=== PATIENT | female | born 1985 | race Caucasian/White ===

== ENCOUNTER → 2018-05-19 19:31 | Outpatient (CLI) | payer OTHER, SELFPAY ==
[2018-05-19 22:19] LABS: Chlamydia Trachomatis by PCR Negative (Negative); Neisserai gonorrhoeae by PCR Negative (Negative); Probe Check PASS; Sample Adequacy Control PASS; Specimen Processing Control PASS
[2018-05-25 15:23] LABS: HPV Reflexed? NOT INDICATED
== END ==
PROVIDERS: Visit Provider Obstetrics & Gynecology
DX: Z12.4 Encounter for screening for malignant neoplasm of cervix (principal); Z11.3 Encounter for screening for infections with a predominantly sexual mode of transmission
CPT/HCPCS: 87491; 87591; 88175; G0145

== ENCOUNTER → 2018-06-15 16:39 | Outpatient (CLI) | payer OTHER, SELFPAY ==
[2018-06-15 17:15] LABS: Absolute Lymphocyte Count 1.58 X10^3/ul (0.83-4.51); Absolute Neutrophil Count 6.3 X10^3/uL (2.0-7.7); Basophil# 0.01 X10^3/uL; Basophil% 0.1 % (0-1); Eosinophil# 0.11 X10^3/uL; Eosinophils% 1.3 % (0-5); Hemoglobin 13.8 g/dl (12.0-15.0); Lymphocyte # 1.58 X10^3/ul (4.0); Lymphocyte % 18.7 % (19-41); Mean Corp Hgb Conc 33.7 g/gl (32-36); Mean Corpuscular Hgb 30.4 pg (27.0-32.0); Mean Corpuscular Volume 90.3 fL (81-99); Mean Platelet Vol. 9.5 fl (6.2-12.0); Monocyte# 0.44 X10^3/uL; Monocyte% 5.2 % (0-10); Neutrophil # 6.32 X10^3/uL (2.7-7.7); Neutrophil % 74.7 % (47-70); POSITIVE COUNT NO; POSITIVE DIFFERENTIAL NO; POSITIVE MORPHOLOGY NO; Platelet Count 290 K/mm3 (150-450); RBC Distribution Width SD 39.5 fl (35.1-43.9); Red Blood Count 4.54 M/mm3 (4.2-5.4); White Blood Count 8.5 K/mm3 (4.4-11.0)
[2018-06-15 17:26] LABS: COTININE Drug Screen Negative (<200 ng/mL)
[2018-06-15 17:34] LABS: Color, Urine Yellow (Yellow); Glucose, Dipstick Normal (Normal); Leukocyte Esterase-Dipstick 25 /ul (Negative); Nitrite-Dipstick Negative (Negative); Occult Blood-Urine Negative /ul (Negative); Protein-Dipstick 15 mg/dl (Negative); Specific Gravity, Urine 1.025 (1.002-1.030); Urine Bilirubin Dipstick Negative (Negative); Urine Clarity Clear (Clear); Urine Urobilinogen Normal (Normal)
[2018-06-15 17:37] LABS: Ketone-Dipstick 150 mg/dl (Negative)
[2018-06-15 17:42] LABS: Amphetamine Urine VISTA NEGATIVE (<1000 ng/mL); Barbiturate Urine VISTA NEGATIVE (< 200 ng/mL); Benzodiazepine Urine VISTA NEGATIVE (< 200 ng/mL); Cocaine Urine VISTA NEGATIVE (< 300 ng/mL); Ecstacy Urine VISTA NEGATIVE (< 500 ng/mL); Methadone Urine VISTA NEGATIVE (< 300 ng/mL); PCP Urine VISTA NEGATIVE (< 25 ng/mL); THC Urine VISTA NEGATIVE (< 50 ng/mL); Vista UDS pH Range 5
[2018-06-15 18:09] LABS: Thyroid Stim Hormone (TSH) 2.32 uIU/mL (0.358-3.74)
[2018-06-15 18:46] LABS: HIV - WCH Non-Reactive (Nonreactive)
[2018-06-18 05:43] LABS: Prenatal RPR NONREACTIVE (NONREACTIVE)
[2018-06-18 13:42] LABS: HEPATITIS B SURFACE AG Negative (Negative); Hep C Antibodies <0.1 s/co ratio (0.0-0.9)
== END ==
PROVIDERS: Visit Provider Obstetrics & Gynecology
DX: Z34.81 Encounter for supervision of other normal pregnancy, first trimester (principal)
CPT/HCPCS: 36415; 80307; 81002; 84443; 85025; 86703; 86762; 86803; 87340

== ENCOUNTER → 2018-10-20 15:03 | Outpatient (CLI) | payer OTHER, SELFPAY ==
[2018-08-28 08:23] VITALS: BMI 20.5
[2018-10-20 15:58] LABS: Glucose Challenge Gest 1H 50g 115 mg/dL (70-140)
[2018-10-20 16:08] LABS: Hematocrit 38.5 % (37-47); Hemoglobin 12.9 g/dl (12.0-15.0); Mean Corp Hgb Conc 33.5 g/gl (32-36); Mean Corpuscular Hgb 31.9 pg (27.0-32.0); Mean Corpuscular Volume 95.1 fL (81-99); Mean Platelet Vol. 9.4 fl (6.2-12.0); Platelet Count 350 K/mm3 (150-450); RBC Distribution Width CV 12.9 % (11.6-14.6); RBC Distribution Width SD 43.8 fl (35.1-43.9); Red Blood Count 4.05 M/mm3 (4.2-5.4); Scan Indicated on CBC? Y/N NO; White Blood Count 10.5 K/mm3 (4.4-11.0)
== END ==
PROVIDERS: Visit Provider Obstetrics & Gynecology
DX: Z34.83 Encounter for supervision of other normal pregnancy, third trimester (principal)
CPT/HCPCS: 36415; 82950; 85027

== ENCOUNTER → 2018-12-08 16:10 | Outpatient (CLI) | payer OTHER, SELFPAY ==
[2018-08-28 08:23] VITALS: BMI 20.5
== END ==
PROVIDERS: Visit Provider Obstetrics & Gynecology
DX: Z36.85 Encounter for antenatal screening for Streptococcus B (principal)
CPT/HCPCS: 87081

== ENCOUNTER 2019-01-03 07:50 | Inpatient (IN) | payer OTHER, SELFPAY ==
[2018-08-28 08:23] VITALS: BMI 20.5
[2019-01-03 07:39] VITALS: BMI 23.5
[2019-01-03 07:45] LABS: ROM Internal Control Test YES-OK TO RESULT pt. (Internal QC)
[2019-01-03 07:46] LABS: ROM Patient Test POSITIVE (Negative)
[2019-01-03] MEDS: Lactated Ringers 1,000 ML 50 ML IV ×2 (08:00→09:19)
[2019-01-03 08:37] LABS: Absolute Lymphocyte Count 2.59 X10^3/ul (0.83-4.51); Absolute Neutrophil Count 7.5 X10^3/uL (2.0-7.7); Basophil# 0.03 X10^3/uL; Basophil% 0.3 % (0-1); Eosinophil# 0.13 X10^3/uL; Eosinophils% 1.2 % (0-5); Hematocrit 37.7 % (37-47); Hemoglobin 12.7 g/dl (12.0-15.0); Lymphocyte # 2.59 X10^3/ul (4.0); Lymphocyte % 23.6 % (19-41); Mean Corp Hgb Conc 33.7 g/gl (32-36); Mean Corpuscular Hgb 29.9 pg (27.0-32.0); Mean Corpuscular Volume 88.7 fL (81-99); Mean Platelet Vol. 9.8 fl (6.2-12.0); Monocyte# 0.71 X10^3/uL; Monocyte% 6.5 % (0-10); Neutrophil # 7.48 X10^3/uL (2.7-7.7); Platelet Count 322 K/mm3 (150-450); RBC Distribution Width CV 12.9 % (11.6-14.6); RBC Distribution Width SD 41.3 fl (35.1-43.9); Red Blood Count 4.25 M/mm3 (4.2-5.4)
[2019-01-03 08:38] LABS: POSITIVE COUNT NO; POSITIVE DIFFERENTIAL NO; POSITIVE MORPHOLOGY NO
[2019-01-03] MEDS: fentaNYL-bupivacaine (epidural) 100 ML BAG EPIDURAL (09:40)
--- NOTE | 2019-01-03 10:16 | PCM.PN.BLA ---
Progress Note LABOR PROGRESS NOTE comfortable w/ epidural AVSS AROM of forebag with copious clear fluid noted. Cx: /-2 sl posterior EFM category I tracing. UCs poor pickup. A/P: 38 6/7 wk SROM with AROM now of forebag. Cervix essentially same. Will watch progress now after AROM of forebag. Continue labor Anticipate
[2019-01-03] MEDS: Oxytocin 30 units/NS 500 ml 30 UNITS/500 ML IV.SOLN 334 UNITS IV (13:59)
--- NOTE | 2019-01-03 14:09 | PCM.DCVAG ---
Discharge Diet: No Restrictions Discharge Activity: May Shower, May Take a Tub Bath May resume sexual activity in: 4-6 weeks Additional Activity Instructions:: Nothing in the vagina for 4-6 weeks. You may return to work/school in 6 weeks. Additional Instructions: If you experience any of the following, contact your healthcare provider. Bleeding that soaks a pad every hour for 2 hours Fever 100.4 or higher Unrelieved abdominal pain Problems urinating (including inability to urinate or burning while urinating). Visual changes Severe headache Flu-like symptoms Pain or redness in one of both of your breasts Pain, warmth, tenderness or swelling in your legs, especially the calf area Frequent nausea and vomiting Symptoms of depression or anxiety If you experience any of the following, call 911 or go to the nearest Emergency Room. Chest pain Problems breathing Seizure activity Partial or complete paralysis of a body part, slurred speech, weakness or drooping of the face, or a sudden inability to walk or hold your balance Allergies/Adverse Reactions: Allergies No Known Allergies Allergy (Verified 08/28/18 08:24) Medications to take at Discharge Albuterol Sulfate [Ventolin Hfa] 1 - 2 puff IH Q4H PRN PRN 04/14/15 Montelukast [Singulair] 10 mg PO DAILY 05/19/16 Vits [Prenatabs FA ] 1 tab PO DAILY 05/19/16 Please Follow Up With: Jose Alberto Keller MD - [phone] When: Call to make an appointment with your doctor in 6 weeks. Primary Care Physician: Nadia Alexander MD [Primary Care Provider] - Test Results: Test results from this visit will be discussed in further detail at your follow-up appointment, if applicable. Proposed Discharge Date: 01/05/19
--- NOTE | 2019-01-03 14:10 | DCINST_ITS ---
Discharge Diet: No Restrictions Discharge Activity: May Shower, May Take a Tub Bath May resume sexual activity in: 4-6 weeks Additional Activity Instructions:: Nothing in the vagina for 4-6 weeks. You may return to work/school in 6 weeks. Additional Instructions: If you experience any of the following, contact your healthcare provider. * Bleeding that soaks a pad every hour for 2 hours * Fever 100.4 or higher * Unrelieved abdominal pain * Problems urinating (including inability to urinate or burning while urinating). * Visual changes * Severe headache * Flu-like symptoms * Pain or redness in one of both of your breasts * Pain, warmth, tenderness or swelling in your legs, especially the calf area * Frequent nausea and vomiting * Symptoms of depression or anxiety If you experience any of the following, call 911 or go to the nearest Emergency Room. * Chest pain * Problems breathing * Seizure activity * Partial or complete paralysis of a body part, slurred speech, weakness or drooping of the face, or a sudden inability to walk or hold your balance Allergies/Adverse Reactions: Allergies No Known Allergies Allergy (Verified 08/28/18 08:24) Medications to take at Discharge Albuterol Sulfate [Ventolin Hfa] 1 - 2 puff IH Q4H PRN PRN 04/14/15 Montelukast [Singulair] 10 mg PO DAILY 05/19/16 Vits [Prenatabs FA ] 1 tab PO DAILY 05/19/16 Please Follow Up With: Jose Alberto Keller MD - [phone] When: Call to make an appointment with your doctor in 6 weeks. Primary Care Physician: Nadia Alexander MD [Primary Care Provider] - Test Results: Test results from this visit will be discussed in further detail at your follow- up appointment, if applicable. Proposed Discharge Date: 01/05/19
--- NOTE | 2019-01-03 14:12 | PCM.OPRPT ---
Vaginal Delivery Maternal Presentation: Active Labor 38 6/7 wk labor SROM Amniotic Membrane Rupture Type: Spontaneous at home Rupture of Membrane time: 0230 Amniotic Fluid Description: Clear Final KATIE: 01/11/19 Gestational age: 38 Weeks and 6 Days Date of Procedure: 01/03/19 Pre-Operative Diagnosis: 38 6/7 wk labor Post-Operative Diagnosis: same Surgery/ Procedure Performed: Spontaneous Vaginal Delivery Type of Anesthesia: Epidural Description of Procedure: of a mcneill viable male over intact perineum. Head delivered GARCIA. No nuchal cord noted OP and nares bulb suctioned on perineum. Shoulders delivered easily, through loose body cord x one. Infant to maternal abdomen with spont cry. End stage meconium noted. Delayed cord clamping employed and the cord clamped x two and cut. Routine cord gases obtained PP exam: 1st deg posterior perineal laceration repaired under epidural to hemostatic, intact with 3-0 Vicryl Rapide. No other lacerations noted. Placenta delivered by spont expulsion, 3 V cord, normal appearing and intact with trailing membranes EBL 350 cc Pt and tolerated delivery well. to recovery, stable condition Raytec counts correct x two All sharps removed from field. Presentation: Vertex, GARCIA Placental Delivery Description: Spontaneous, Expressed Placenta Disposition: [facility] Cord Vessel Description: 3 Vessels Cord Gases drawn per routine: ABG, VBG Cord Entanglement: None Drain: Meza to straight drain Estimated Blood Loss: 350 Infant A gender: Male (1 minute): 8 (5 minute): 9 Episiotomy Description: None Laceration: Midline, Perineal Extension/lac, 1st degree Medications given after delivery: IV Pitocin Complications: None
[2019-01-03] MEDS: Oxytocin 30 units/NS 500 ml 30 UNITS/500 ML IV.SOLN 167 UNITS IV (14:30)
[2019-01-03] MEDS: 0.9% Saline Lock 10 ML Syringe IV (15:32)
[2019-01-03] MEDS: Ibuprofen 600 MG Tablet PO (19:50)
[2019-01-03 19:56] VITALS: BP 114/70; PULSE 87; RESP 18; TEMP 36.7
[2019-01-04 00:10] VITALS: BP 109/66; PULSE 68; RESP 18; TEMP 36.1
[2019-01-04 04:30] VITALS: BP 100/68; PULSE 64; RESP 18; TEMP 36.3
[2019-01-04] MEDS: Ibuprofen 600 MG Tablet PO (04:38)
[2019-01-04 04:56] LABS: Hemoglobin 10.9 g/dl (12.0-15.0); Mean Corpuscular Hgb 29.5 pg (27.0-32.0); Mean Corpuscular Volume 89.4 fL (81-99); Platelet Count 294 K/mm3 (150-450); RBC Distribution Width CV 12.7 % (11.6-14.6); RBC Distribution Width SD 39.4 fl (35.1-43.9); Red Blood Count 3.69 M/mm3 (4.2-5.4)
[2019-01-04 04:57] LABS: Scan Indicated on CBC? Y/N NO
--- NOTE | 2019-01-04 08:14 | PCM.PN.OB ---
Subjective: PPD#1 Doing well. Minimal pain, mostly with nursing Bleeding about like a heavy period, no longer passing any clots. - Physical Exam General: Alert, Oriented x3, Cooperative, No apparent distress HEENT: Atraumatic Neck: Supple Abdomen: Soft - Fundus firm, NT at 1-2 cm inferior to umbilicus Extremities: No clubbing, No cyanosis Psych/Mental Status: Normal Affect Vital Signs Temp Pulse Resp BP 97.4 F L 64 18 100/68 01/04/19 04:30 01/04/19 04:30 01/04/19 04:30 01/04/19 04:30 Oxygen Delivery Method Room Air Weight: 65 kg Body Mass Index (BMI) 23.5 Intake and Output for Last 24 Hours 01/02/19 01/03/19 01/04/19 23:59 23:59 23:59 Intake Total 1559 / 1559 Output Total 1075 / 1075 Balance 484 / 484 Laboratory Tests Past 24 Hrs 01/03/19 01/03/19 01/04/19 08:10 08:10 04:40 WBC 11.0 13.0 H RBC 4.25 3.69 L Hgb 12.7 10.9 L Hct 37.7 33.0 L MCV 88.7 89.4 MCH 29.9 29.5 MCHC 33.7 33.0 RDW 12.9 12.7 RDW Differential 41.3 39.4 Plt Count 322 294 MPV 9.8 10.0 Immature Gran % (Auto) 0.400 Neut % (Auto) 68.0 Lymph % (Auto) 23.6 [place] % (Auto) 6.5 Eos % (Auto) 1.2 Baso % (Auto) 0.3 Absolute Neuts (auto) 7.5 Absolute Lymphs (auto) 2.59 Total Counted Not Reportable Blood Type B POSITIVE Antibody Screen NEGATIVE Medical Necessity - Tobacco Use Smoking Status: Never smoker Assessment/Plan All Active Problems (Last Updated 08/28/18 @ 08:25 by Namrata Naik) Sinusitis, acute (Acute) PPD#1 Stable , continue care certificate form today.
[2019-01-04 08:16] VITALS: BP 94/67; PULSE 66; RESP 16; TEMP 36.4
[2019-01-04] MEDS: Prenatal Vits Tablet 1 TABLET PO (08:21)
[2019-01-04] MEDS: Montelukast 10 MG Tablet PO (08:21)
[2019-01-04 11:46] VITALS: BP 99/61; PULSE 76; RESP 16; TEMP 36.3
--- NOTE | 2019-01-04 12:12 | PCM.DC.SUM ---
Discharge Date and Diagnosis Date of Admission: 01/03/19 Date of Discharge: 01/04/19 - Primary Discharge Diagnosis S/P Hospital Course and Treatment Operations: None Procedures: - - Summary of Care Provided: The patient is a 33 year old F [admitted in active labor. Progressed over a short time to FD then pushed to deliver a live male without complication. course was unremarkable. Discharged home on PP day#1.] - Physical Exam Vital Signs Temp Pulse Resp BP 97.4 F L 76 16 99/61 01/04/19 11:46 01/04/19 11:46 01/04/19 11:46 01/04/19 11:46 Oxygen Delivery Method Room Air Weight: 143 lb 4.807 oz Body Mass Index (BMI) 23.5 Intake and Output for Last 24 Hours 01/02/19 01/03/19 01/04/19 23:59 23:59 23:59 Intake Total 1559 / 1559 Output Total 1075 / 1075 Balance 484 / 484 Laboratory Tests Past 24 Hrs 01/04/19 04:40 WBC 13.0 H RBC 3.69 L Hgb 10.9 L Hct 33.0 L MCV 89.4 MCH 29.5 MCHC 33.0 RDW 12.7 RDW Differential 39.4 Plt Count 294 MPV 10.0 Discharge Diet: No Restrictions Discharge Activity: May Shower, May Take a Tub Bath Return to work on:: 03/06/19 May resume sexual activity in: 4-6 weeks Additional Activity Instructions:: Nothing in the vagina for 4-6 weeks. You may return to work/school in 6 weeks. Call your doctor if you observe: Fever of 101 or Higher, Inability to urinate, Inability to have a bowel movement, Using more than one pad per hour, Shortness of breath, Chest pain, Calf discomfort, Uncontrolled pain Cleanse incision/area with: Soap & Water Home Medications: Medications to take at Discharge Albuterol Sulfate [Ventolin Hfa] 1 - 2 puff IH Q4H PRN PRN 04/14/15 Montelukast [Singulair] 10 mg PO DAILY 05/19/16 Vits [Prenatabs FA ] 1 tab PO DAILY 05/19/16 Primary Care Physician: Nadia Alexander MD [Primary Care Provider] - Please Follow Up With: Jose Alberto Keller MD - [phone] When: 6 weeks Disposition: Home Minutes spent on discharge:: 15 Patient Condition:: Good Medical Necessity - Tobacco Use Smoking Status: Never smoker Meaningful Use Info Meaningful Use Diagnoses (Choose all that apply): None applicable
[2019-01-04 14:47] VITALS: BP 104/65; PULSE 80; RESP 16; TEMP 36.6
== END 2019-01-04 15:50 | disposition home or self-care (01) | DRG 807 ==
LOC: WPOUT 07:56
PROVIDERS: Obstetrics & Gynecology; Admitting Provider Obstetrics & Gynecology; Family Provider Internal Medicine; PCP Internal Medicine; Referring Provider Obstetrics & Gynecology; Visit Provider Obstetrics & Gynecology
DX: O42.02 Full-term premature rupture of membranes, onset of labor within 24 hours of rupture (principal); Z37.0 Single live birth; O77.0 Labor and delivery complicated by meconium in amniotic fluid; O70.0 First degree perineal laceration during delivery; O99.513 Diseases of the respiratory system complicating pregnancy, third trimester; J45.909 Unspecified asthma, uncomplicated; O99.353 Diseases of the nervous system complicating pregnancy, third trimester; G43.909 Migraine, unspecified, not intractable, without status migrainosus; Z3A.38 38 weeks gestation of pregnancy
CPT/HCPCS: 59025; 59050; 84112; 85025; 85027; 86850; 86900; 99218; J7120; A4216; G0378

== ENCOUNTER 2019-10-29 17:15 | Emergency (ER) | payer OTHER, SELFPAY ==
[2019-10-29 17:16] VITALS: BP 103/78; PULSE 101; RESP 16; TEMP 36.7; O2SAT 100; BMI 20.7
[2019-10-29 17:48] VITALS: PULSE 83; RESP 18; O2SAT 100
--- NOTE | 2019-10-29 18:13 | ED.VIS.GEN ---
History of Present Illness Chief Complaint: Asthma Informant: Patient Onset: Days Current Severity: Mild Maximum Severity: Moderate Narrative: Patient complains of URI symptoms for the past 2 weeks with increased shortness of breath for the past 3 days. She states she used her nebulizer machine the last 2 days. She is used her rescue inhaler 3 times today but has not noted much improvement. She denies fever. She has had mild cough with white phlegm. - Past Medical History (1) Asthma Status: Chronic Past Medical History - Allergies and Home Meds Allergies/Adverse Reactions: Allergies No Known Allergies Allergy (Verified 10/29/19 17:19) Primary Care Physician: Nadia Alexander MD [Primary Care Provider] - Prior records reviewed: Yes Lives: With Family Smoking Status: Never smoker Review of Systems General: Denies: Chills, Fever Eyes: Denies: Visual changes - bilaterally ENT: Denies: Bilateral ear pain Cardiovascular: Reports: Chest pain - Lungs feel tight Respiratory: Reports: Dyspnea, Cough Gastrointestinal: Denies: Abdominal pain, Nausea, Vomiting, Diarrhea Genitourinary: Denies: Dysuria Musculoskeletal: Denies: Swelling, Extremity Pain Skin: Denies: Rash Neurological: Denies: Headache Allergy: Denies: Uticaria Physical Exam Vital Signs/Narrative: Vital Signs Temp Pulse Resp BP Pulse Ox 10/29/19 17:48 83 18 100 10/29/19 17:16 98.1 F 101 H 16 103/78 100 Inital Vital Signs reviewed: Yes General: Well nourished, Well developed Head: Normocephalic ENT: Moist mucous membranes Neck: Supple Cardiovascular: Regular rate, Regular rhythm Respiratory: No distress, Decreased Air Movement Abdomen: Soft, Nontender Skin: Normal color Neurological: Alert, Oriented x3 Psychological: Normal affect Diagnostic/Tx/Re-eval Impressions Chest X-Ray 10/29/19 19:25 IMPRESSION: No evidence of acute cardiopulmonary process. Electronically Signed: Jesus Thompson DO at 19:41 EST , Service support , 10/29/19 19:25 Chest PA and Lateral [RAD] Stat - Medical Decision Making Patient was given a DuoNeb treatment along with p.o. prednisone. On repeat evaluation she does report significant improvement. Chest x-ray does not reveal any infiltrate. Patient will be given a prescription for steroid burst as well as a new inhaler. Return instructions were discussed. ED Disposition - Plan for ED Patient: Disposition: Home or Assisted Living Diagnosis: Viral URI, Asthma exacerbation Instructions: ASTHMA, Acute (Adult), URI, Viral, No Abx (Adult) Prescriptions: Prednisone [Deltasone] 40 mg PO DAILY #10 tab Transmission Status: Pending to [id number] Albuterol Inhaler [Ventolin Hfa] 1 - 2 puff INHALATION Q4H PRN PRN #1 inhaler PRN Reason: Wheezing Transmission Status: Pending to [facility] Referrals: Nadia Alexander MD [Primary Care Provider] - 1 Week
[2019-10-29] MEDS: predniSONE 20 MG Tablet 40 MG PO (18:18)
[2019-10-29 18:52] VITALS: PULSE 84; RESP 16
[2019-10-29] MEDS: Ipratropium/Albuterol Sulfate 3 ML AMPUL.NEB INHALATION (18:52)
--- NOTE | 2019-10-29 19:25 | RAD_ITS ---
STUDY: X-RAY CHEST REASON FOR EXAM: Female, 34 years old. COUGH, SOB, NO RELIEF WITH HER INHALER TECHNIQUE: PA and lateral views of the chest. COMPARISON: None. FINDINGS: The lungs are clear and expanded. There is no demonstrated pleural abnormality. Normal size heart. Normal mediastinum and kym. Normal visualized pulmonary arteries. Normal visualized aortic arch and descending thoracic aorta. There is demineralization of the osseous structures. Normal visualized ribs, clavicles, and shoulders. There is no demonstrated abnormality of the visualized soft tissue structures of the upper abdomen. RAD/Chest PA and Lateral IMPRESSION: No evidence of acute cardiopulmonary process. Electronically Signed: Jesus Thompson DO at 19:41 EST , Service support ,
[2019-10-29 20:15] VITALS: PULSE 98; RESP 17; O2SAT 98
== END 2019-10-29 20:17 | disposition home or self-care (01) ==
PROVIDERS: Emergency Provider Emergency Medicine; PCP Internal Medicine
DX: J45.901 Unspecified asthma with (acute) exacerbation (principal); J06.9 Acute upper respiratory infection, unspecified
CPT/HCPCS: 71046; 94640; 99283; A4216

== ENCOUNTER 2024-04-04 09:59 | Day surgery (SDC) | payer OTHER, SELFPAY ==
[2024-04-04] VITALS (8 sets, daily range): BP systolic 100–138; BP diastolic 75–89; PULSE 85–95; RESP 14–17; TEMP 36.4–36.9; O2SAT 98–100; BMI 23.8
[2024-04-04 10:25] LABS: Internal QC Validated? YES +Cl - CLEAR BKGD; Pregnancy, Urine Negative Negative
[2024-04-04] MEDS: Lactated Ringers 1,000 ML 15 ML IV (10:30)
--- NOTE | 2024-04-04 10:31 | PCM.HP.STD ---
HPI - General General Date of Service: 04/04/24 HPI Narrative EVAN SINGH, is a 38 F who presents for umbilical hernia repair with possible mesh. Patient still states she has been having some discomfort at her umbilicus with exercising. Otherwise denies any changes. office visit 02/04/24 HPI HPI: 38-year-old female presents due to umbilical hernia. Patient states she noticed this when she was . States more recently they have been doing more exercising it has been more discomfort at her umbilicus. Patient is interested in repair. Patient states she is always had an outie. [facility] Medical History (Updated 03/25/24 @ 10:15 by Ryann Hay) Wears glasses Alcohol use Migraine headache Umbilical hernia Asthma Hemorrhoids Shortness of breath Home Medications ?Medication ?Instructions ?Recorded ?Last Taken ?Type albuterol sulfate 90 mcg/actuation 1 - 2 puff IH Q4H PRN PRN Wheezing 04/14/15 08/11/16 History aerosol inhaler 2 puffs albuterol sulfate 2.5 mg/3 mL 2.5 mg inhalation Q4HWA.RT 10/29/19 Unknown History (0.083 %) solution for nebulization fluticasone furoate 50 1 inh inhalation DAILY 02/04/24 04/04/24 History mcg-vilanterol 25 mcg/dose inhalation powder (Breo Ellipta) montelukast 10 mg tablet 10 mg PO DAILY 02/04/24 04/03/24 History (Singulair) sumatriptan succinate 100 mg tablet See Rx Instructions PO .COMPLEX 02/04/24 Unknown History Lactobacillus acidophilus 10 100 mmu cells PO DAILY 03/25/24 04/03/24 History billion cell capsule (NewFlora) Allergy/AdvReac Type Severity Reaction Status Date / Time No Known Allergies Allergy Verified 04/04/24 10:26 Family History (Updated 02/04/24 @ 08:59 by Joanie Estrella) Grandfather Diabetes Father Hypertension Surgical History (Updated 03/25/24 @ 10:15 by Ryann Hay) History of hymenectomy History of repair of ACL Social History (Updated 02/04/24 @ 08:59 by Joanie Estrella) Smoking Status: Never smoker alcohol intake: current substance use type: does not use Vital Signs Vital Signs Vital Signs: 04/04/24 10:26 04/04/24 10:26 Temperature 98.4 F Temperature Source Temporal Pulse Rate 87 Respiratory Rate 17 Respiratory Pattern Normal Blood Pressure 138/88 H Blood Pressure Mean 104 Blood Pressure Source Monitor Blood Pressure Position Semi-Fowlers Blood Pressure Location Right Arm Pulse Ox 100 Oxygen Delivery Method Room Air Weight Weight: 143 lb 4.807 oz Body Mass Index (BMI) 23.8 Physical Exam Const alert, oriented x3 and no apparent distress HEENT normocephalic and head/scalp atraumatic Resp normal respiratory effort Cardio regular rate GI soft to palpation and non-tender; Negative for non-distended GI Narrative: Umbilical hernia, reducible less than 1 cm Palpation: Negative for guarding Extremity no clubbing, cyanosis or edema Skin no rashes or lesions noted Neuro CN's II-XII intact bilaterally Psych mental status grossly normal Results Lab / Micro Data Labs: Laboratory Results - last 24 hr 04/04/24 10:10: Urine Test Negative Assessment & Plan Assessment/Plan (1) Umbilical hernia: PLAN: Plan Plan to do an umbilical hernia repair with possible mesh. Reviewed the procedure with the patient including the risks, including but not limited to infection, bleeding, injury to the small bowel, and recurrence. All questions were answered. Bisi Ellsworth M.D. Pager: [phone] [facility] [address] [place] [address], [address] [place] [address] Office: [phone]
--- NOTE | 2024-04-04 10:54 | PRE.ANES_ITS ---
ASA Classification* ASA Classification ASA Classification: 2 Assessment & Plan Anesthesia* Anesthesia Assessment Anesthesia Assessment: Discussed sedation and/or anesthesia options, risks, benefits, and alternatives with patient/parents/legal guardian/POA. Questions invited. The patient/parents/legal guardian/POA seems to understand and agrees to proceed with anesthesia plan. Reviewed the physical assessment, medical history, allergy history and patient home medications list prior to surgery/procedure/anesthetic and documented any changes. Performed airway and anesthesia risk assessments. Anesthesia Type Anesthesia Type: General History Source History Obtained from:: Patient and Chart Anesthesia Focused Assessment* Temperature: 98.4 F Pulse Rate: 87 Blood Pressure: 138/88 Respiratory Rate: 17 Pulse Ox: 100 Oxygen Delivery Method: Room Air Airway Assessment Mouth opens: >3 cm Mallampati Score: I Teeth Condition: Intact Neck Range of motion (ROM): Full ROM Focused Labs Anesthesia Preop lab: CBC WBC 13.0 K/mm3 (4.4-11.0) H 01/04/19 04:40 RBC 3.69 M/mm3 (4.2-5.4) L 01/04/19 04:40 Hgb 10.9 g/dl (12.0-15.0) L 01/04/19 04:40 Hct 33.0 % (37-47) L 01/04/19 04:40 Plt Count 294 K/mm3 (150-450) 01/04/19 04:40 CHEMISTRY TSH 2.32 uIU/mL (0.358-3.74) 06/15/18 16:42 COAG HCG, Quant < 1 mIU/mL (<9 non-preg) 04/14/15 21:25 Urine Test Negative Negative 04/04/24 10:10 Pre-Assessment Diagnosis/Proposed Procedure Planned Operative Procedure(s): OPEN UMBILICAL HERNIA REPAIR POSSIBLE MESH Anesthesia History 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 When Was Last Pacemaker Check QUESTION #4 FULL TEXT: You/Your Family Experience fever (hyperthermia) with Anesthesia Last Oral Intake Last Oral intake: Last Oral Intake NPO since 00:00 04/04/24 10:26 Meds taken in AM with sips of Yes 04/04/24 10:26 water? Meds patient instructed to breo 04/04/24 10:26 take am of surgery PONV PONV - radiological equipment specialist: PONV - radiological equipment specialist Female Yes 03/25/24 10:15 HX of Motion Sickness Yes 03/25/24 10:15 HX of N/V After Surgery Yes 03/25/24 10:15 Non-Smoker Yes 03/25/24 10:15 Duration of Surgery greater Yes 03/25/24 10:15 than 60 minutes Number of Risk Factors 5 03/25/24 10:15 PONV Score Severe Risk 03/25/24 10:15 Height & Weight Height & Weight: Anesthesia: Height & Weight Height 5 ft 5 in 04/04/24 10:26 Weight: 65 kg 04/04/24 10:26 Body Mass Index (BMI) 23.8 04/04/24 10:26 Respiratory Assessment Respiratory Assessment - radiological equipment specialist: Respiratory Tract Infection Hx - radiological equipment specialist Hx Respiratory Tract Infection No 03/25/24 10:15 STOP Sleep Apnea STOP Sleep Apnea - radiological equipment specialist: STOP Sleep Apnea - radiological equipment specialist Hx Hypertension No 03/25/24 10:15 Hx Sleep Apnea No 03/25/24 10:15 CPAP BIPAP Do you snore loudly (louder No 03/25/24 10:15 than talking or can be heard Do you often feel tired/ No 03/25/24 10:15 fatigued/ sleepy during daytime? Has anyone observed you stop No 03/25/24 10:15 breathing during sleep? STOP Results Negative 03/25/24 10:15 QUESTION #5 FULL TEXT : Do you snore loudly (louder than talking or can be heard through closed doors)? 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 Specify any problems Hx of Preganancy in last 3 No 03/25/24 10:15 Months Nurse Filling Out Transfusion VCHRISTIN 03/25/24 10:15 & Questions: Date: 03/25/24 03/25/24 10:15 Time: 10:17 03/25/24 10:15 Patient unable to answer at this time (ie. confused, unrespo /Reproduction History /Reproductive History - radiological equipment specialist: /Reproductive Hx- radiological equipment specialist Hx Now No 03/25/24 10:15 Gestational Age (in weeks): EDC: Hx Hx Para Hx Section SAB No 03/25/24 10:15 Active Medications Active Medications: Current Medications Generic Name Dose Route Start Last Admin Trade Name Freq PRN Reason Stop Dose Admin Cefazolin Sodium 2 gm/ Sodium 110 mls @ 150 mls/hr 04/04/24 11:30 Chloride IV 04/04/24 12:13 PREOP ONE Lactated Ringer's 1,000 mls @ 15 mls/hr 04/04/24 10:15 04/04/24 10:30 IV 15 mls/hr .Q48H TONY Administration PFSH Medical History (Updated 03/25/24 @ 10:15 by Ryann Hay) Wears glasses Alcohol use Migraine headache Umbilical hernia Asthma Hemorrhoids Shortness of breath Home Medications ?Medication ?Instructions ?Recorded ?Last Taken ?Type albuterol sulfate 90 mcg/actuation 1 - 2 puff IH Q4H PRN PRN Wheezing 04/14/15 04/04/24 History aerosol inhaler albuterol sulfate 2.5 mg/3 mL 2.5 mg inhalation Q4HWA.RT 10/29/19 Unknown History (0.083 %) solution for nebulization fluticasone furoate 50 1 inh inhalation DAILY 02/04/24 04/04/24 History mcg-vilanterol 25 mcg/dose inhalation powder (Breo Ellipta) montelukast 10 mg tablet 10 mg PO DAILY 02/04/24 04/03/24 History (Singulair) sumatriptan succinate 100 mg tablet See Rx Instructions PO .COMPLEX 02/04/24 Unknown History Lactobacillus acidophilus 10 100 mmu cells PO DAILY 03/25/24 04/03/24 History billion cell capsule (NewFlora) Allergy/AdvReac Type Severity Reaction Status Date / Time No Known Allergies Allergy Verified 04/04/24 10:26 Family History (Updated 02/04/24 @ 08:59 by Joanie Estrella) Grandfather Diabetes Father Hypertension Surgical History (Updated 03/25/24 @ 10:15 by Ryann Hay) History of hymenectomy History of repair of ACL Social History (Updated 02/04/24 @ 08:59 by Joanie Estrella) Smoking Status: Never smoker alcohol intake: current substance use type: does not use Review of Systems (Anesthesia) ROS Narrative System reviewed and no additional complaints, except as documented.
[2024-04-04] MEDS: Cefazolin 2 GM in 0.9% Normal Saline (100mL Bag) 100 ML IV (11:24)
[2024-04-04] MEDS: Bupivacaine Mpf 0.5% 30 ML VIAL (11:42)
--- NOTE | 2024-04-04 11:49 | PCM.OPRPT ---
Report of Operation Date of Procedure: 04/04/24 Pre-Operative Diagnosis: Umbilical hernia Post-Operative Diagnosis: Same Surgery/Procedure Performed:: Open umbilical hernia repair Surgeon: Bisi Ellsworth Type of Anesthesia: General/Supplemental Anesthesiologist: Erasmo Callaway Special Medications: Ancef 2 g IV x 1 Specimen's removed: none Estimated Blood Loss (mL): < 10 cc Description of Procedure: Patient was brought into the room placed supine on the operating table. Correct patient, procedure, site, positioning, special, was verified prior to procedure. General anesthesia was induced. The abdomen was prepped draped in usual sterile fashion. A curvilinear incision was made below the umbilicus with a 15 blade scalpel. This was deepened with electrocautery. A hemostat was used to go around the stalk of the umbilicus and Metzenbaum scissors was used to carefully divide the hernia sac from the skin of the umbilicus. The fascia around the hernia defect was cleared and the hernia defect measured 8 mm x 8 mm. The hernia defect was closed with a [id number] 1 Nurolon. The wound was irrigated with saline. Hemostasis was assured. The skin of the umbilicus was secured to the fascia using 3-0 Vicryl suture interrupted. The incision was closed with 3-0 Vicryl subdermal interrupted sutures and the skin was closed with interrupted 4-0 Monocryl sutures. Steri-Strips and Tegaderm and OpSite were placed over the incision once sterile cotton balls were placed in the umbilicus. Patient was extubated. Patient tolerated procedure well and was taken to the postanesthesia care unit in stable condition. Complications none
--- NOTE | 2024-04-04 11:50 | EX.PCM.DISCH ---
Discharge Instructions Diet Discharge Diet: Light diet - advance as tolerated Activity May shower in (days): 5 (Keep umbilical dressing clean dry and intact for 5 days. Okay to tape off with a Ziploc bag to shower. Or lower shower and upper sponge bath.) Lifting Restrictions: no lifting >20 lbs x 2 wks, no strenuous exercise for 4 wks Additional Activity Instructions:: - Abdominal binder for comfort only Dressing / Incision Call your doctor if your incision/area has: Continuous Slow Oozing, Sudden Increased Bleeding, Increased Pain/ Swelling, Increased Redness, Foul Smelling Discharge and Swelling at the incision site Call your doctor if you observe: Fever of 101 or Higher Remove Dressing in: 5 days (After 5 days okay to remove surgical dressing. Place cotton ball or rolled up gauze in bellybutton and retape daily for 2 more days.) Cleanse incision/area with: Do not get Incision Wet (for 5 days) Additional Dressing/Incision Instructions:: Steri-Strips will fall off in 7 to 10 days, if they do not fall off okay to remove after 10 days. Follow Up Care Please Follow Up With: Bisi Ellsworth MD When: Call the office for a follow-up appointment 2 weeks; after 5 PM and on the weekends call [phone] with any concerns. Test Results: Test results from this visit will be discussed in further detail at your follow-up appointment, if applicable. Discharge Plan Admission Attending Provider: Bisi Ellsworth Primary Care Provider: Nadia Alexander Instructions Print Language: Luxembourgish Discharge Orders/Prescriptions Prescriptions: New tramadol 50 mg tablet 50 mg PO Q6H PRN (Reason: pain) 2 Days Qty: 5 0RF Continued Breo Ellipta 50-25 mcg/dose blister with device 1 inh inhalation DAILY sumatriptan succinate 100 mg tablet See Rx Instructions PO .COMPLEX Rx Instructions: take 1 tab at onset of headache; if no relief, may repeat 1 tab after at least 2 hrs; max = 2 tabs/24 hrs PO montelukast [Singulair] 10 mg tablet 10 mg PO DAILY albuterol sulfate 18 GM HFA aerosol inhaler 1 - 2 puff IH Q4H PRN PRN (Reason: Wheezing) albuterol sulfate 2.5 MG/3 ML solution for nebulization 2.5 mg inhalation Q4HWA.RT NewFlora 10 billion cell capsule 100 mmu cells PO DAILY Referrals / Follow Up: Nadia Alexander MD [Primary Care Provider] - Disposition Disposition (needs filled in before D/C Order can be placed): Home, Self Care
--- NOTE | 2024-04-04 12:36 | PCM.POST.ANE ---
Anesthesia: Postop Eval I Current Vital Signs Temperature: 98.1 F Pulse Rate: 85 Blood Pressure: 114/75 Respiratory Rate: 14 Pulse Ox: 99 Oxygen Delivery Method: Room Air Assessment Airway patent: Yes Spontaneous unlabored respirations: Yes Mental status: Awake and Calm nausea: No Vomiting: No Anesthesia Complication: No Fluid Hydration Crystalloid volume administer (ml): 800 Total IV fluid infused: 800 Progress Note Anesthesia document: Postop Eval 1 completed: Yes
--- NOTE | 2024-04-05 07:26 | PCM.POSTANE2 ---
Anesthesia Postop Eval I Sum Postop Eval Completion status Anesthesia document: Postop Eval 1 completed: Yes Anesthesia Postop Eval I Summary Anesthesia Postop Eval I Summary: Anesthesia Postop Eval I: Assessment Summary Airway patent Yes 04/04/24 12:37 [email or web address] Spontaneous unlabored Yes 04/04/24 12:37 [email or web address] respirations Mental status Awake,Calm 04/04/24 12:37 [email or web address] nausea No 04/04/24 12:37 [email or web address] Vomiting No 04/04/24 12:37 [email or web address] Anesthesia Postop Eval I: Fluid Summary Crystalloid volume administer 800 04/04/24 12:37 [email or web address] (ml) Colloids volume administered ( ml) Blood Product volume administered (ml) Total IV fluid infused 800 04/04/24 12:37 [email or web address] Anesthesia Postop Eval I: Summary Notes Anesthesia Complication No 04/04/24 12:37 [email or web address] Anesthesia Complication Comment: Post-operative progress note Anesthesia: Postop Eval II Evaluation Mental status: Awake Pain Level: 0 nausea: No Vomiting: No
== END 2024-04-04 13:17 | disposition home or self-care (01) ==
LOC: SDC 10:01 → AC 10:02
PROVIDERS: Anesthesiology; PCP Internal Medicine; Referring Provider Surgery; Visit Provider Surgery
PROC: (CPT 49591; principal; 2024-04-04 11:15)
DX: K42.9 Umbilical hernia without obstruction or gangrene (principal); J45.909 Unspecified asthma, uncomplicated; Z79.51 Long term (current) use of inhaled steroids
CPT/HCPCS: 49591; 00830; 81025; J7120; J2405